=== PATIENT | male | born 1970 | race Caucasian/White ===

== ENCOUNTER 2018-08-08 13:06 | Emergency (ER) | payer OTHER ==
[2018-08-08] MEDS ORDERED: ONDANSETRON 4 MG/2 ML VIAL ONE (13:54)
[2018-08-08] MEDS ORDERED: MORPHINE 4 MG/ML SYR ONE (13:54)
--- NOTE | 2018-08-08 14:46 | RAD REPORT ---
EXAM DESCRIPTION: CT - Chest Abdomen Pelvis W Cont - 08/08/2018 2:16 pm CLINICAL HISTORY: Chest and abdominal pain status post fall from ladder COMPARISON: None TECHNIQUE: Computed axial tomography of the chest, abdomen and pelvis was obtained. 100 cc Isovue-30 0 was administered intravenously. Oral contrast was not requested. This limits evaluation of bowel. All CT scans are performed using dose optimization technique as appropriate and may include automated exposure control or mA/KV adjustment according to patient size. FINDINGS: A pleural effusion is not present. A pericardial effusion is not seen A pulmonary contusion is not seen. A mediastinal hematoma is not present. Nondisplaced fractures involve the fourth, fifth and sixth left lateral ribs. Nondisplaced fractures involve the posterior ninth, tenth and eleventh left ribs. A mildly displaced fracture left twelfth posterior rib A pneumothorax is not seen Fractures involve the first, second, third, fourth left transverse processes of the lumbar spine Spondylolysis involves L5 The liver, spleen, pancreas, adrenals and kidneys and bladder do not demonstrate a traumatic injury. Fatty infiltration liver. Penile implant. IMPRESSION: Multiple left rib mid fractures Multiple fractures left transverse processes of lumbar spine
[2018-08-08] MEDS ORDERED: CYCLOBENZAPRINE 10 MG TAB ONE (15:28)
[2018-08-08] MEDS ORDERED: HYDROCODONE/APAP 10/325 TAB ONE (15:28)
--- NOTE | 2018-08-08 15:37 | ER ---
Nurse's Notes [facility] Name: Gaston Frost Age: 48 yrs Sex: Male : 1970 Arrival Date: 08/08/2018 Time: 13:07 Bed 24 Private MD: Francis Alexander V Diagnosis: Multiple left rib and lumbar transverse process fractures Presentation: 08/08 13:41 Presenting complaint: Patient states: " I was trimming branches and fell out of the ph tree." Pt reports falling approx 12-14 feet, denies head injury of blood thinner use, reports falling onto L side, denies SOB, dizziness, or nausea. Care prior to arrival: None. Mechanism of Injury: Fall from ladder approximately 12 feet. Trauma event details: Injury occurred in the [facility], Injury occurred: at home. Injury occurred: August 08, 2018. 13:41 Acuity: DUY 2 ph 13:41 Method Of Arrival: Ambulatory ph 14:21 Transition of care: patient was not received from another setting of care. Onset of ph symptoms was August 08, 2018. Risk Assessment: Do you want to hurt yourself or someone else? Patient reports no desire to harm self or others. Initial Sepsis Screen: Does the patient meet any 2 criteria? No. Patient's initial sepsis screen is negative. Does the patient have a suspected source of infection? No. Patient's initial sepsis screen is negative. Triage Assessment: 14:38 General: Appears uncomfortable, Behavior is calm, cooperative. Musculoskeletal: Reports ph pain in back and chest and left lateral posterior chest and left lateral anterior chest. Trauma Activation: Alert Physician: ED Physician; Name: Marilu; Notified At: 13:35; Arrived At: 13:35 Physician: General Surgeon; Name: ; Notified At: 13:35; Arrived At: Physician: Radiology; Name: Maureen; Notified At: 13:35; Arrived At: 13:38 Physician: Respiratory; Name: ; Notified At: 13:35; Arrived At: Physician: Lab; Name: ; Notified At: 13:35; Arrived At: Historical: - Allergies: 13:45 No Known Allergies; ph - PMHx: 13:45 Hyperlipidemia; Hypertension; ph - Immunization history:: Adult Immunizations unknown. - Social history:: Smoking status: unknown. - Immunization history: Last tetanus immunization: - up to date. - Ebola Screening: : No symptoms or risks identified at this time. Screenin:20 Abuse screen: Denies threats or abuse. Denies injuries from another. Nutritional ss screening: No deficits noted. Tuberculosis screening: No symptoms or risk factors identified. Fall Risk Fall in past 12 months (25 points). No secondary diagnosis (0 pts). IV access (20 points). Ambulatory Aid- None/Bed Rest/Nurse Assist (0 pts). Gait- Normal/Bed Rest/Wheelchair (0 pts) Mental Status- Oriented to own ability (0 pts). Total Martinez Fall Scale indicates High Risk Score (45 or more points). Fall prevention measures have been instituted. Side Rails Up X 2 Frequent Obs/Assessments Occuring Family Present and informed to notify staff if the need to leave the bedside As available patient and family educated on Fall Prevention Program and Strategies. Primary Survey: 13:45 A: Airway: patent, No supplemental oxygen in use on arrival. Oral cavity: clear, ss Trachea midline. Breathing/Chest: Respiratory pattern: regular, Respiratory effort: spontaneous, unlabored, Chest inspection: symmetrical rise and fall of the chest. Circulation: Skin color: pink, Skin temperature: warm, dry. Disability Alert. 15:49 Reassessment Breathing/Chest Respiratory pattern Regular Respiratory effort Spontaneous ph Breath sounds Clear Chest inspection Symmetrical. Secondary Survey: 13:45 HEENT: No deficits noted. Gastrointestinal: No deficits noted. Abdomen is soft, noted ss to have ascites. Musculoskeletal: Circulation, motion, and sensation intact. Range of motion: intact in all extremities, Reports pain in left lateral anterior chest and left lateral posterior chest. Assessment: 14:38 Reassessment: Patient appears in no apparent distress at this time. Patient and/or ph family updated on plan of care and expected duration. Pain level reassessed. Patient is alert, oriented x 3, equal unlabored respirations, skin warm/dry/pink. Patient states feeling better. Patient states symptoms have improved. Neuro: Level of Consciousness is awake, alert, obeys commands, Oriented to person, place, time, situation, [employer] Teacher are equal bilaterally Moves all extremities. Full function Gait is steady, Speech is normal, Facial symmetry appears normal, Pupils are PERRLA, Intact Denies weakness blurred vision dizziness, headache. 15:39 Reassessment: Patient appears in no apparent distress at this time. Patient and/or ph family updated on plan of care and expected duration. Pain level reassessed. Patient is alert, oriented x 3, equal unlabored respirations, skin warm/dry/pink. Patient states feeling better. Patient states symptoms have improved. Musculoskeletal: Circulation, motion, and sensation intact. Capillary refill < 3 seconds, in bilateral fingers. Range of motion: intact in all extremities, Swelling absent Reports pain in back and left lateral posterior chest and left lateral anterior chest Pain is 4 out of 10 on a pain scale. Vital Signs: 13:45 BP 126 / 94; Pulse 89; Resp 18; Temp 98.8; Pulse Ox 97% on R/A; Weight 78.47 kg; Height ph 5 ft. 9 in. (175.26 cm); Pain 8/10; 14:38 BP 132 / 84; Pulse 87; Resp 17; Temp 98.3(O); Pulse Ox 97% on R/A; Pain 6/10; ph 15:39 BP 132 / 98; Pulse 85; Resp 17; Temp 98.9(O); Pulse Ox 99% on R/A; Pain 4/10; ph 13:45 Body Mass Index 25.55 (78.47 kg, 175.26 cm) ph [place] Coma Score: 13:45 Eye Response: spontaneous(4). Verbal Response: oriented(5). Motor Response: obeys ph commands(6). Total: 15. Trauma Score (Adult): 13:45 Eye Response: spontaneous(1); Verbal Response: oriented(1); Motor Response: obeys ph commands(2); Systolic BP: > 89 mm Hg(4); Respiratory Rate: 10 to 29 per min(4); [place] Score: 15; Trauma Score: 12 14:38 Eye Response: spontaneous(1); Verbal Response: oriented(1); Motor Response: obeys ph commands(2); Systolic BP: > 89 mm Hg(4); Respiratory Rate: 10 to 29 per min(4); [place] Score: 15; Trauma Score: 12 15:39 Eye Response: spontaneous(1); Verbal Response: oriented(1); Motor Response: obeys ph commands(2); Systolic BP: > 89 mm Hg(4); Respiratory Rate: 10 to 29 per min(4); [place] Score: 15; Trauma Score: 12 ED Course: 13:07 Patient arrived in ED. sb2 13:09 Francis Alexander MD is Private Physician. sb2 13:39 [facility] Persaud [facility]. cp 13:39 Gaston Michel MD is Attending Physician. cp 13:41 Buffy Gotti RN is Primary Nurse. ph 13:44 Triage completed. ph 13:49 Gaston Michel MD is Attending Physician. cp 13:50 Inserted saline lock: 18 gauge in right antecubital area, using aseptic technique. ph Blood collected. 13:[address] via wheelchair. vr 14:00 CT completed. Patient tolerated procedure well. Patient moved back from CT. vr 14:21 Patient maintains SpO2 saturation greater than 95% on room air. ph 14:21 Patient has correct armband on for positive identification. Placed in gown. Bed in low ph position. Call light in reach. Side rails up X 1. Pulse ox on. NIBP on. Warm blanket given. 14:22 Thermoregulation: warm blanket given to patient. ph 14:22 Arm band placed on. ph 15:32 Francis Alexander MD is Referral Physician. kdr 15:46 No provider procedures requiring assistance completed. IV discontinued, intact, ph bleeding controlled, No redness/swelling at site. Pressure dressing applied. Administered Medications: 13:55 Drug: morphine 4 mg Route: IVP; Site: right antecubital; ss 15:50 Follow up: Response: No adverse reaction; Pain is decreased ph 13:55 Drug: Zofran 4 mg Route: IVP; Site: right antecubital; ss 15:50 Follow up: Response: No adverse reaction ph 15:27 Drug: [place] 10 mg-325 mg 1 tabs Route: PO; ed1 15:51 Follow up: Response: No adverse reaction; Pain is decreased ph 15:27 Drug: Flexeril 10 mg Route: PO; ed1 15:51 Follow up: Response: No adverse reaction; Pain is decreased ph Intake: 14:22 PO: 0ml; Total: 0ml. ph 14:38 PO: 0ml; Total: 0ml. ph 15:39 PO: 240ml (Water); Total: 240ml. ph Output: 14:22 Urine: 0ml; Total: 0ml. ph 14:38 Urine: 0ml; Total: 0ml. ph 15:39 Urine: 0ml; Total: 0ml. ph Outcome: 15:36 Discharge ordered by . kdr 15:47 Discharged to home ambulatory, with significant other. ph 15:47 Condition: good 15:47 Discharge instructions given to patient, Instructed on discharge instructions, follow up and referral plans. medication usage, Demonstrated understanding of instructions, follow-up care, medications, Prescriptions given X 2. 15:49 Patient's length of stay in the Emergency Department was greater than 2 hours. ph 16:13 Patient left the ED. ed1 Signatures: Gaston Michel MD MD kdr Smirch, Shelby RN RN Nury Sweeney LVN ENGINEERING PSYCHOLOGIST ed1 Deidre Sanabria Patricia, RN RN ph Cosmo Persaud, PA Cassidy Pierre cp sb2
--- NOTE | 2018-08-08 15:38 | EDPHYS ---
Physician Documentation [facility] Name: Gaston Frost Age: 48 yrs Sex: Male : 1970 Arrival Date: 08/08/2018 Time: 13:07 Bed 24 Private MD: Francis Alexander V ED Physician Gaston Michel HPI: 08/08 17:04 This 48 yrs old Male presents to ER via Ambulatory with complaints of Back kdr Pain. 17:04 The patient presents with pain that is acute. The symptoms are located in the low back, kdr left trapezius, left scapular area, left subscapular area, left low back and left mid back. Onset: The symptoms/episode began/occurred suddenly, just prior to arrival. The pain radiates to the anterior aspect of left upper chest and left breast. Associated signs and symptoms: The patient has no apparent associated signs or symptoms. The problem was sustained during a fall, The patient was trimming a tree and was about 10 feet off the ground when the ladder fell. He landed on his left side. There was no LOC or other injury. The patient was able to ambulate to the department. Modifying factors: The patient symptoms are alleviated by nothing, the patient symptoms are aggravated by any movement, bending, coughing, lifting, movement, nothing. Severity of symptoms: At their worst the symptoms were moderate, severe. The patient has not experienced similar symptoms in the past. The patient has not recently seen a physician. Historical: - Allergies: 13:45 No Known Allergies; ph - PMHx: 13:45 Hyperlipidemia; Hypertension; ph - Immunization history:: Adult Immunizations unknown. - Social history:: Smoking status: unknown. - Immunization history: Last tetanus immunization: - up to date. - Ebola Screening: : No symptoms or risks identified at this time. ROS: 17:04 Constitutional: Negative for fever, chills, and weight loss, Eyes: Negative for injury, kdr pain, redness, and discharge, ENT: Negative for injury, pain, and discharge, Neck: Negative for injury, pain, and swelling, Cardiovascular: Negative for chest pain, palpitations, and edema, Abdomen/GI: Negative for abdominal pain, nausea, vomiting, diarrhea, and constipation, : Negative for injury, bleeding, discharge, and swelling, MS/Extremity: Negative for injury and deformity, Skin: Negative for injury, rash, and discoloration, Neuro: Negative for headache, weakness, numbness, tingling, and seizure activity. Psych: Negative for depression, anxiety, suicide ideation, homicidal ideation, and hallucinations, Allergy/Immunology: Negative for hives, rash, and allergies, Endocrine: Negative for neck swelling, polydipsia, polyuria, polyphagia, and marked weight changes, Hematologic/Lymphatic: Negative for swollen nodes, abnormal bleeding, and unusual bruising. 17:04 Respiratory: Positive for Negative for hemoptysis, pleurisy, sputum production, wheezing. Exam: 17:04 Constitutional: This is a well developed, well nourished patient who is awake, alert, kdr and in no acute distress. Head/Face: Normocephalic, atraumatic. Eyes: Pupils equal round and reactive to light, extra-ocular motions intact. Lids and lashes normal. Conjunctiva and sclera are non-icteric and not injected. Cornea within normal limits. Periorbital areas with no swelling, redness, or edema. Neck: Trachea midline, no thyromegaly or masses palpated, and no cervical lymphadenopathy. Supple, full range of motion without nuchal rigidity, or vertebral point tenderness. No Meningismus. Chest/axilla: Normal chest wall appearance and motion. Nontender with no deformity. No lesions are appreciated. Cardiovascular: Regular rate and rhythm with a normal S1 and S2. No gallops, murmurs, or rubs. Normal PMI, no JVD. No pulse deficits. Respiratory: Lungs have equal breath sounds bilaterally, clear to auscultation and percussion. No rales, rhonchi or wheezes noted. No increased work of breathing, no retractions or nasal flaring. Abdomen/GI: Soft, non-tender, with normal bowel sounds. No distension or tympany. No guarding or rebound. No evidence of tenderness throughout. Skin: Warm, dry with normal turgor. Normal color with no rashes, no lesions, and no evidence of cellulitis. 17:04 Back: pain, that is mild, CVA tenderness, is absent, vertebral tenderness, muscle spasm, is appreciated in the left trapezius, left scapular area, left subscapular area, left low back and left mid back. Vital Signs: 13:45 BP 126 / 94; Pulse 89; Resp 18; Temp 98.8; Pulse Ox 97% on R/A; Weight 78.47 kg; Height ph 5 ft. 9 in. (175.26 cm); Pain 8/10; 14:38 BP 132 / 84; Pulse 87; Resp 17; Temp 98.3(O); Pulse Ox 97% on R/A; Pain 6/10; ph 15:39 BP 132 / 98; Pulse 85; Resp 17; Temp 98.9(O); Pulse Ox 99% on R/A; Pain 4/10; ph 13:45 Body Mass Index 25.55 (78.47 kg, 175.26 cm) ph [place] Coma Score: 13:45 Eye Response: spontaneous(4). Verbal Response: oriented(5). Motor Response: obeys ph commands(6). Total: 15. Trauma Score (Adult): 13:45 Eye Response: spontaneous(1); Verbal Response: oriented(1); Motor Response: obeys ph commands(2); Systolic BP: > 89 mm Hg(4); Respiratory Rate: 10 to 29 per min(4); [place] Score: 15; Trauma Score: 12 14:38 Eye Response: spontaneous(1); Verbal Response: oriented(1); Motor Response: obeys ph commands(2); Systolic BP: > 89 mm Hg(4); Respiratory Rate: 10 to 29 per min(4); [place] Score: 15; Trauma Score: 12 15:39 Eye Response: spontaneous(1); Verbal Response: oriented(1); Motor Response: obeys ph commands(2); Systolic BP: > 89 mm Hg(4); Respiratory Rate: 10 to 29 per min(4); [place] Score: 15; Trauma Score: 12 MDM: 13:39 Patient medically screened. cp 17:04 Data reviewed: vital signs, nurses notes, lab test result(s), radiologic studies. kdr Counseling: I had a detailed discussion with the patient and/or guardian regarding: the historical points, exam findings, and any diagnostic results supporting the discharge/admit diagnosis, lab results, radiology results, the need for outpatient follow up. Physician consultation: Jose R Stephen MD regarding and will see patient in office, tomorrow, in 2-3 days. 08/08 14:49 Order name: CT; Complete Time: 15:11 EDMS 08/08 15:49 Order name: INCENTIVE SPIROMETRY ph Administered Medications: 13:55 Drug: morphine 4 mg Route: IVP; Site: right antecubital; ss 15:50 Follow up: Response: No adverse reaction; Pain is decreased ph 13:55 Drug: Zofran 4 mg Route: IVP; Site: right antecubital; ss 15:50 Follow up: Response: No adverse reaction ph 15:27 Drug: [place] 10 mg-325 mg 1 tabs Route: PO; ed1 15:51 Follow up: Response: No adverse reaction; Pain is decreased ph 15:27 Drug: Flexeril 10 mg Route: PO; ed1 15:51 Follow up: Response: No adverse reaction; Pain is decreased ph Disposition: 08/08/18 15:36 Discharged to Home. Impression: Multiple left rib and lumbar transverse process fractures. - Condition is Fair. - Discharge Instructions: Transverse Process Fracture, Rib Fracture, Klju-md-Odit. - Prescriptions for Robaxin 500 mg Oral Tablet - take 2 tablet by ORAL route every 6 hours As needed; 40 tablet. Tylenol- Codeine #3 300-30 mg Oral Tablet - take 2 tablets by ORAL route every 4-6 hours As needed; 40 tablet. - Medication Reconciliation Form, Thank You Letter, Antibiotic Education, Prescription Opioid Use form. - Follow up: Francis Alexander MD; When: 2 - 3 days; Reason: If symptoms return, Further diagnostic work-up, Recheck today's complaints, Continuance of care, Re-evaluation by your physician. - Problem is new. - Symptoms have improved. Signatures: Dispatcher [employer] EDMS Gaston Michel MD MD [facility] Radha Smith RN RN ss Nury Sweeney, [employer]BILE HOME PARK MANAGER MOBILE HOME PARK MANAGER ed1 Buffy Gotti RN RN ph Page, Cosmo, PA PA cp Corrections: (The following items were deleted from the chart) 16:13 15:36 08/08/2018 15:36 Discharged to Home. Impression: Multiple left rib and lumbar ed1 transverse process fractures. Condition is Fair. Forms are Medication Reconciliation Form, Thank You Letter, Antibiotic Education, Prescription Opioid Use. Follow up: Francis Alexander; When: 2 - 3 days; Reason: If symptoms return, Further diagnostic work-up, Recheck today's complaints, Continuance of care, Re-evaluation by your physician. Problem is new. Symptoms have improved. kdr
== END 2018-08-08 16:13 | disposition home or self-care (01) ==
LOC: ER 13:06
DX: S32.009A Unspecified fracture of unspecified lumbar vertebra, initial encounter for closed fracture (principal); S22.42XA Multiple fractures of ribs, left side, initial encounter for closed fracture; W11.XXXA Fall on and from ladder, initial encounter; Y93.H2 Activity, gardening and landscaping; Y92.9 Unspecified place or not applicable; I10 Essential (primary) hypertension
CPT/HCPCS: 71260; 74177; 96374; 96375; 99285; J2405; Q9967